=== PATIENT | female | born 1995 | race Caucasian/White ===

== ENCOUNTER 2018-12-31 13:59 | Emergency (ER) | payer MEDICAID ==
[~2018-12-31] VITALS: Ht 165.1 cm; Wt 122.7 kg
[2018-12-31 14:40] VITALS: BP 121/80
[2018-12-31] MEDS ORDERED: ketorolac trometh inj. 60 MG/2 ML VIAL IM ONE (15:40)
== END 2018-12-31 16:33 | disposition home or self-care (01) ==
LOC: ER 14:00
DX: M77.9 Enthesopathy, unspecified (principal); M25.531 Pain in right wrist; Z88.0 Allergy status to penicillin; Z88.5 Allergy status to narcotic agent
CPT/HCPCS: 29125; 73110; 99283

== ENCOUNTER 2019-02-26 13:38 | Emergency (ER) | payer OTHER, MEDICAID ==
[~2019-02-26] VITALS: Ht 165.1 cm; Wt 115.0 kg
[~2019-02-26 13:38] MED LIST: ONDA4TAB6 PO
[2019-02-26 13:46] VITALS: BP 135/86
[2019-02-26] MEDS ORDERED: METH-360 PO (15:14)
[2019-02-26] MEDS ORDERED: orphenadrine citrate 60mg/2ml inj. IM ONE (15:15)
[2019-02-26] MEDS ORDERED: ketorolac tromethamine 15mg/ml inj. IM ONE (15:15)
== END 2019-02-26 16:03 | disposition home or self-care (01) ==
LOC: ER 13:38
DX: M25.511 Pain in right shoulder (principal); Z88.0 Allergy status to penicillin; Z88.5 Allergy status to narcotic agent; Z79.899 Other long term (current) drug therapy; V43.52XA Car driver injured in collision with other type car in traffic accident, initial encounter; Y93.89 Activity, other specified; Y92.488 Other paved roadways as the place of occurrence of the external cause; Y99.8 Other external cause status
CPT/HCPCS: 73030; 96372; 99283; J1885; J2360

== ENCOUNTER 2020-06-22 13:50 | Outpatient (CLI) | payer MEDICAID ==
[~2020-06-22] VITALS: Ht 165.1 cm; Wt 121.1 kg
[~2020-06-22 13:50] MED LIST changes: +METH-360 PO
[2020-06-22] MEDS ORDERED: IBUP200C89 PO (14:06)
[2020-06-22 14:57] LABS: ALBUMIN 3.9 G/DL (3.4-5.0); ALBUMIN/GLOBULIN RATIO 1.2 (1.1-1.5); ALKALINE PHOSPHATASE 80 IU/L (46-116); BLOOD UREA NITROGEN 10 MG/DL (7-18); CHLORIDE 107 MMOL/L (99-107); CREATININE 0.77 MG/DL (0.40-0.90); PRE OP ALT 35 U/L (30-65); PRE OP ANION GAP 8 (8-16); PRE OP AST 21 U/L (10-37); PRE OP BILIRUB, TOTAL 0.5 MG/DL (0.0-1.0); PRE OP GLUCOSE 99 MG/DL (70-104); PRE OP POTASSIUM 4.3 MMOL/L (3.4-5.1); PRE OP SODIUM 141 MMOL/L (135-145); TOTAL CARBON DIOXIDE 26.2 MMOL/L (24-32); TOTAL PROTEIN 7.1 G/DL (6.4-8.2); eGFR > 90 ML/MIN
[2020-06-22 14:59] LABS: BASOPHILS # (AUTO) 0.1 X10'3 (0-0.2); BASOPHILS % (AUTO) 0.7 % (0-1); EOSINOPHILS # (AUTO) 0.1 X10'3 (0-0.9); EOSINOPHILS % (AUTO) 1.1 % (0-6); LYMPHOCYTES % (AUTO) 24.8 % (21-51); MEAN CORPUSCULAR HEMOGLOBIN 28.5 PG (27.0-31.0); MEAN CORPUSCULAR HGB CONC 33.2 g/dL (33.0-36.5); MEAN CORPUSCULAR VOLUME 85.9 FL (78-98); MONOCYTES # (AUTO) 0.5 X10'3 (0-0.9); MONOCYTES % (AUTO) 6.5 % (2-12); NEUTROPHILS # (AUTO) 5.4 X10'3 (1.8-7.7); NEUTROPHILS % (AUTO) 66.9 % (42-75); PRE OP HEMOGLOBIN 14.3 g/dL (12.0-16.0); PRE OP PLATELET COUNT 323 X10'3 (140-440); RED BLOOD COUNT 5.01 X10'6 (4.20-5.60); RED CELL DISTRIBUTION WIDTH 13.4 % (11.5-14.5)
[2020-06-28] MEDS ORDERED: ringers solution, lacted 1,000 ML IV SCH (05:00)
[2020-06-28] MEDS ORDERED: famotidine 20mg tablet PO ONE (05:30)
[2020-06-28] MEDS ORDERED: ceFAZolin inj. 3,000 MG in normal saline 100ml IV soln 100 ML IV ONE (05:30)
== END 2020-06-22 23:59 | disposition home or self-care (01) ==
LOC: PRE-OP 13:50 → EDSTATUS 06-28 10:00
PROVIDERS: ATTEND Orthopaedic Surgery Hand Surgery
DX: Z01.812 Encounter for preprocedural laboratory examination (principal); U07.1 COVID-19; M25.531 Pain in right wrist; D48.1 Neoplasm of uncertain behavior of connective and other soft tissue
CPT/HCPCS: 36415; 80053; 85025; 87635

== ENCOUNTER 2020-07-22 21:40 | Emergency (ER) | payer MEDICAID, OTHER ==
[~2020-07-22] VITALS: Ht 165.1 cm; Wt 121.4 kg
[~2020-07-22 21:40] MED LIST changes: +IBUP200C89 PO; -METH-360 PO; -ONDA4TAB6 PO
[2020-07-22] MEDS ORDERED: ibuprofen tablet 400 MG TABLET PO ONE (21:55)
[2020-07-22] MEDS ORDERED: acetaminophen 325mg tablet PO ONE (21:55)
[2020-07-22 22:48] VITALS: BP 142/98
[2020-07-22] MEDS ORDERED: ketorolac tromethamine 15mg/ml inj. IM ONE (23:00)
[2020-07-22] MEDS ORDERED: IBUP-1984 PO (23:02)
== END 2020-07-22 23:30 | disposition home or self-care (01) ==
LOC: ER 21:40
DX: S93.402A Sprain of unspecified ligament of left ankle, initial encounter (principal); M25.572 Pain in left ankle and joints of left foot; Z88.0 Allergy status to penicillin; Z88.8 Allergy status to other drugs, medicaments and biological substances; Z79.899 Other long term (current) drug therapy; W50.2XXA Accidental twist by another person, initial encounter; Y93.89 Activity, other specified; Y92.89 Other specified places as the place of occurrence of the external cause; Y99.8 Other external cause status
CPT/HCPCS: 73610; 73630; 99284

== ENCOUNTER 2020-11-29 07:48 | Day surgery (SDC) | payer MEDICAID, OTHER ==
[2020-11-23 12:31] LABS: BASOPHILS % (AUTO) 0.4 % (0-1); EOSINOPHILS # (AUTO) 0.1 X10'3 (0-0.9); EOSINOPHILS % (AUTO) 0.7 % (0-6); LYMPHOCYTES % (AUTO) 24.3 % (21-51); MEAN CORPUSCULAR HEMOGLOBIN 29.1 PG (27.0-31.0); MEAN CORPUSCULAR HGB CONC 33.4 g/dL (33.0-36.5); MEAN CORPUSCULAR VOLUME 87.1 FL (78-98); MEAN PLATELET VOLUME 7.5 FL (7.4-10.4); MONOCYTES # (AUTO) 0.4 X10'3 (0-0.9); MONOCYTES % (AUTO) 4.6 % (2-12); NEUTROPHILS # (AUTO) 5.9 X10'3 (1.8-7.7); PRE OP HEMATOCRIT 43.7 % (35.0-45.0); PRE OP HEMOGLOBIN 14.6 g/dL (12.0-16.0); PRE OP PLATELET COUNT 324 X10'3 (140-440); RED BLOOD COUNT 5.01 X10'6 (4.20-5.60); RED CELL DISTRIBUTION WIDTH 13.7 % (11.5-14.5)
[2020-11-23 12:57] LABS: HCG SERUM QL NEGATIVE
[~2020-11-29] VITALS: Ht 165.1 cm; Wt 115.1 kg
[~2020-11-29 07:48] MED LIST changes: +BUPIVAcaine/PF 2.5 mg/ml (0.25%) 30ml vial ONE; +clindamycin-Cleocin 900mg/D5W 50 ML IV ONE; +famotidine 20mg tablet PO ONE; +ringers solution, lacted 1,000 ML IV SCH
[2020-11-29 08:00] VITALS: BP 131/71
[2020-11-29] MEDS ORDERED: ringers solution, lacted 1,000 ML IV SCH (09:20)
[2020-11-29] MEDS ORDERED: proCHLORperazine 10 MG/2 ml inj IV PRN (09:20)
[2020-11-29] MEDS ORDERED: morphine 2 MG/ML inj. syringe IV PRN (09:20)
[2020-11-29] MEDS ORDERED: ondansetron/PF 4mg/2ml inj IV PRN (09:20)
[2020-11-29] MEDS ORDERED: morphine 4 MG/ML inj SYRINge IV PRN (09:20)
[2020-11-29] MEDS ORDERED: meperidine/PF 25mg/ml syringe IV PRN ×3 (09:20)
[2020-11-29] MEDS ORDERED: fentaNYL/PF 50MCG/1 ML 2ML syringe ONE (09:38)
[2020-11-29] MEDS ORDERED: midazolam 1 mg/ML 2ml injection ONE (09:39)
[2020-11-29 10:04] VITALS: BP 126/85
--- NOTE | 2020-11-29 10:04 | NUR ---
Received from OR via [facility], accompanied by Anesthesiologist KIMMY and report given by Anesthesiolgist. NO CO PAIN, VSS,IV PATENT. SKIN WARM. FINGERS WARM, MOVE WELL.
[2020-11-29 10:14] VITALS: BP 135/85
[2020-11-29 10:24] VITALS: BP 134/84
[2020-11-29 10:34] VITALS: BP 132/82
--- NOTE | 2020-11-29 10:34 | NUR ---
DC TO HOME WITH FRIEND KWAKU. GIVEN INSTRUCTIONS, STATES UNDERSTANDS. VSS, IV OUT. NO PAIN, FINGERS MOVE WELL. WARM WITH BRISK CAP REFILL. DENIES PROBLEMS
== END 2020-11-29 10:34 | disposition home or self-care (01) ==
LOC: PAS 07:48
PROVIDERS: ATTEND Orthopaedic Surgery Hand Surgery
DX: D17.21 Benign lipomatous neoplasm of skin and subcutaneous tissue of right arm (principal); E66.9 Obesity, unspecified; Z68.41 Body mass index [BMI] 40.0-44.9, adult; Z20.822 Contact with and (suspected) exposure to COVID-19; Z79.899 Other long term (current) drug therapy; Z87.891 Personal history of nicotine dependence; Z88.0 Allergy status to penicillin; Z88.5 Allergy status to narcotic agent; Z98.890 Other specified postprocedural states
CPT/HCPCS: 25075; 36415; 82948; 84703; 85025; J2250; J3010; J3490; J7120; U0003; U0005; A4215; A4618; A7000

== ENCOUNTER 2021-11-29 18:13 | Emergency (ER) | payer MEDICAID ==
[~2021-11-29] VITALS: Ht 165.1 cm; Wt 118.3 kg
[~2021-11-29 18:13] MED LIST changes: -BUPIVAcaine/PF 2.5 mg/ml (0.25%) 30ml vial ONE; -clindamycin-Cleocin 900mg/D5W 50 ML IV ONE; -famotidine 20mg tablet PO ONE; -ringers solution, lacted 1,000 ML IV SCH
[2021-11-29 18:19] VITALS: BP 150/106
[2021-11-29] MEDS ORDERED: ibuprofen tablet 400 MG TABLET PO ONE (21:25)
--- NOTE | 2021-11-29 21:46 | NUR ---
po med given velcro wrist splibnt applied to rt wrist. post splint csm intact
[2021-11-29] MEDS ORDERED: TRAM50TA2 PO (21:49)
--- NOTE | 2021-11-29 21:52 | NUR ---
foster mom raised concern about pt recent weight loss. informed
== END 2021-11-29 22:03 | disposition home or self-care (01) ==
LOC: ER 18:14
DX: M25.531 Pain in right wrist (principal); M54.2 Cervicalgia; R51.9 Headache, unspecified; Z88.0 Allergy status to penicillin; Z88.8 Allergy status to other drugs, medicaments and biological substances; Z79.899 Other long term (current) drug therapy
CPT/HCPCS: 29125; 70450; 72125; 73110; 99284

== ENCOUNTER 2022-04-01 14:42 | Emergency (ER) | payer MEDICAID ==
[~2022-04-01] VITALS: Ht 165.1 cm; Wt 118.2 kg
[2022-04-01 15:06] VITALS: BP 125/82
[2022-04-01] MEDS ORDERED: traMADol 50MG tablet PO ONE (15:55)
[2022-04-01] MEDS ORDERED: TRAM50TA2 PO (15:58)
== END 2022-04-01 16:18 | disposition home or self-care (01) ==
LOC: ER 14:42
DX: S93.491A Sprain of other ligament of right ankle, initial encounter (principal); W18.39XA Other fall on same level, initial encounter; Y93.89 Activity, other specified; Y92.89 Other specified places as the place of occurrence of the external cause; Y99.8 Other external cause status
CPT/HCPCS: 73610; 99284; L4360

== ENCOUNTER 2022-07-03 12:25 | Emergency (ER) | payer MEDICAID ==
[~2022-07-03] VITALS: Ht 165.1 cm; Wt 118.2 kg
[2022-07-03 14:20] VITALS: BP 137/97
== END 2022-07-03 20:45 | disposition home or self-care (01) ==
LOC: ER 12:25
DX: M25.512 Pain in left shoulder (principal); Z88.0 Allergy status to penicillin; Z88.8 Allergy status to other drugs, medicaments and biological substances; Z79.899 Other long term (current) drug therapy
CPT/HCPCS: 99281

== ENCOUNTER 2022-07-31 17:14 | Emergency (ER) | payer MEDICAID ==
[~2022-07-31] VITALS: Ht 165.1 cm; Wt 113.6 kg
[2022-07-31 17:18] VITALS: BP 129/86
[2022-07-31] MEDS ORDERED: dexamethasone sod phosphate 10mg/ml inj IV STA (17:48)
[2022-07-31] MEDS ORDERED: ketorolac trometh. 30mg/ml inj. IV ONE (17:50)
[2022-07-31] MEDS ORDERED: normal saline 1000ML IV soln IVB ONE (17:50)
[2022-07-31] MEDS ORDERED: metoclopramide 5 mg/ml inj IV ONE (17:50)
[2022-07-31] MEDS ORDERED: LORazepam 2 mg/ml vial IV ONE (17:50)
== END 2022-07-31 18:49 | disposition home or self-care (01) ==
LOC: ER 17:15
DX: G43.909 Migraine, unspecified, not intractable, without status migrainosus (principal); Z88.0 Allergy status to penicillin; Z88.5 Allergy status to narcotic agent; Z79.899 Other long term (current) drug therapy
CPT/HCPCS: 96374; 96375; 99284; J1100; J1885; J2060; J2765; J7030

== ENCOUNTER 2025-01-17 10:41 | Emergency (ER) | payer BC, MEDICAID ==
[~2025-01-17] VITALS: Ht 165.1 cm; Wt 116.4 kg
[2025-01-17 10:44] VITALS: BP 139/87; PULSE 79; RESP 16; TEMP 98.9; O2SAT 97
--- NOTE | 2025-01-17 11:36 | RADIOLOGY REPORT ---
CLINICAL INFORMATION: 29 years old, Female; LEFT ANKLE PAIN. TECHNIQUE: 3 views of the left ankle were obtained. COMPARISON: ANKLE, COMPLETE(3VW MIN) on DOS: 04/01/22, ANKLE, COMPLETE(3VW MIN) on DOS: 07/22/20 FINDINGS: No acute fracture or dislocation. Small chronic appearing ossicles are seen adjacent to the inferior aspect of the lateral malleolus, likely due to old avulsion injury. Talar dome is smooth. N o widening at the ankle mortise. Prominent plantar calcaneal spur. No significant arthropathy. Mild soft tissue swelling of the lateral aspect of the ankle. IMPRESSION: 1. No acute bony abnormality. 2. Chronic appearing small avulsion fragments adjacent to the inferior aspect of the lateral malleolu s.
[2025-01-17] MEDS ORDERED: TRAM50TA2 PO (12:14)
--- NOTE | 2025-01-17 12:17 | Physician Documentation ---
History of Present Illness ~ Chief Complaint: Ankle pain Stated Complaint: FALL Time Seen by MD: 11:21 OK to notify your PCP?: Yes Primary Medical Doctor: travis Source: patient Mode of Arrival: POV Exam Limitations: no limitations HPI 29-year-old female with chief complaint left lateral ankle pain after she rolled her ankle yesterday. States pain is worse when she bears weight on her ankle. She has had numerous injuries to her ankles but states that the fractures have all occurred in her right ankle to her knowledge. No pre arrival treatment other than Tylenol and states that the Tylenol is sometimes not providing her with any relief. She is requesting something stronger for pain. Reports swelling of her ankle with some bruising no other concerns. No redness, abrasions. No trauma to head, no loss of consciousness. Tetanus witin 5 years: Yes Medication Reconciliation Allergies: Coded Allergies: Penicillins (Unverified Allergy, Intermediate, HIVES, 01/17/25) hydrocodone (Unverified Allergy, Intermediate, HIVES, 01/17/25) Scheduled PRN Ibuprofen (Advil Liqui-Gels), 200 MG PO for pain, (Reported) Tramadol HCl (Tramadol HCl), 1 TAB PO TID PRN PRN for pain Past Medical History Past Medical History: Headache, Migraine Past Surgical History: noncontributory Smoking Status: Never smoker Alcohol Use: None Drug Use: none Lives In: Home Occupation: employed Review of Systems All Other Systems at this time: Reviewed and Negative Physical Exam Vital Signs: Temperature: 98.9, Source: Oral, Heart Rate: 79, Respiratory Rate: 16, BP: 139/87, Pulse Oximetry: 97, Weight: 116.360 Physical Exam GENERAL: Alert, no acute distress. HEENT: NCAT, EOMI, PERRL. NECK: Supple, trachea midline. CARDIAC: Regular rate and rhythm, no murmurs, rubs, or gallops. PV: Equal distal pulses. No lower extremity edema, cap refill less than 2 seconds. RESPIRATORY: Equal breath sounds, clear to auscultation bilaterally, no respiratory distress. MUSCULOSKELETAL: Left ankle: Swelling over the lateral malleolus with ecchymosis no erythema. Tenderness over the lateral malleolus. No tenderness over the Achilles or medial malleolus. NEUROLOGICAL: Awake, alert, and oriented x 3. SKIN: Warm/dry, no pallor, no rash. PSYCH: Alert and appropriate. Affect congruent with mood. Speech is clear. Good eye contact. Progress Progress Note [facility] : 1995, Age: 29 Sex: Female Location: ER Patient Status: [facility] ER Service Date/Time: 01/17/251050 Ordering Physician: SOFIE ISSA MD Exam: ANKLE, COMPLETE(3VW MIN) CLINICAL INFORMATION: 29 years old, Female; LEFT ANKLE PAIN. TECHNIQUE: 3 views of the left ankle were obtained. COMPARISON: ANKLE, COMPLETE(3VW MIN) on DOS: 04/01/22, ANKLE, COMPLETE(3VW MIN) on DOS: 07/22/20 FINDINGS: No acute fracture or dislocation. Small chronic appearing ossicles are seen adjacent to the inferior aspect of the lateral malleolus, likely due to old avulsion injury. Talar dome is smooth. No widening at the ankle mortise. Prominent plantar calcaneal spur. No significant arthropathy. Mild soft tissue swelling of the lateral aspect of the ankle. IMPRESSION: 1. No acute bony abnormality. 2. Chronic appearing small avulsion fragments adjacent to the inferior aspect of the lateral malleolus. PROCEDURE: PLACED IN LEFT WALKING BOOT AND CRUTCHES Results/Orders Reviewed/noted all lab results: Yes Results/Orders Orders - BHARTI NOLAN Ortho Orders (01/17/25 12:01) Vital Signs 01/17/25 10:44 Temp 98.9 Pulse 79 Resp 16 B/P (MAP) 139/87 Pulse Ox 97 Medical Decision Making Ankle Diff Dx:Considerations: Include: Abrasion, Arthritis, Contusion, DJD, Fracture-metatarsal, Fracture-fibula, Fracture-tarsal, Fracture-tibia, Gout, Hematoma, Laceration, Malunion, Neurovascular injury, Nonunion, Open fracture, Osteomyelitis, Rheumatoid arthritis, Sprain, Septic, Ulcer, Other Departure Time of Disposition: 12:17 Disposition: 01 HOME / SELF CARE / HOMELESS Impression: Primary Impression: Sprain of ankle Qualified Codes: S93.402A - Sprain of unspecified ligament of left ankle, initial encounter Additional Impression: Abnormal x-ray Condition: Stable Discharge Instructions: Ankle Sprain Additional Instructions: F/U WITH PCP FOR REFERRAL TO PHYSICAL THERAPY AND POSSIBLY FOLLOW UP IMAGING YOUR XRAY SHOWS EVIDENCE OF OLD PREVIOUS FRACTURES. GRADUALLY ADVANCE ACTIVITY TOLERATED XRAY RESULTS BELOW: [facility]ALTH SYSTEM : 1995, Age: 29 Sex: Female Location: ER Patient Status: REG ER Service Date/Time: 01/17/251050 Ordering Physician: SOFIE ISSA MD Exam: ANKLE, COMPLETE(3VW MIN) CLINICAL INFORMATION: 29 years old, Female; LEFT ANKLE PAIN. TECHNIQUE: 3 views of the left ankle were obtained. COMPARISON: ANKLE, COMPLETE(3VW MIN) on DOS: 04/01/22, ANKLE, COMPLETE(3VW MIN) on DOS: 07/22/20 FINDINGS: No acute fracture or dislocation. Small chronic appearing ossicles are seen adjacent to the inferior aspect of the lateral malleolus, likely due to old avulsion injury. Talar dome is smooth. No widening at the ankle mortise. Prominent plantar calcaneal spur. No significant arthropathy. Mild soft tissue swelling of the lateral aspect of the ankle. IMPRESSION: 1. No acute bony abnormality. 2. Chronic appearing small avulsion fragments adjacent to the inferior aspect of the lateral malleolus. Referrals: NO PRIMARY CARE PROVIDER (PCP) Prescriptions Tramadol HCl (Tramadol HCl) 50 Mg Tablet 1 TAB PO TID PRN PRN for pain for 5 Days, #15 TAB dx: S93.4 Prov: BHARTI NOLAN 01/17/25 Education Educated: Patient Educated regarding: diagnosis, treatment, need for follow up Signature Scribe Signature: X Attestation: BHARTI GLASS Jan 17, 2025 12:17
== END 2025-01-17 12:34 | disposition home or self-care (01) ==
LOC: ER 10:42
DX: S93.492A Sprain of other ligament of left ankle, initial encounter (principal); G43.909 Migraine, unspecified, not intractable, without status migrainosus; Z88.0 Allergy status to penicillin; Z88.5 Allergy status to narcotic agent; Z79.899 Other long term (current) drug therapy; X50.1XXA Overexertion from prolonged static or awkward postures, initial encounter; Y93.9 Activity, unspecified; Y92.89 Other specified places as the place of occurrence of the external cause; Y99.8 Other external cause status
CPT/HCPCS: 73610; 99284; L4360